=== PATIENT | female | born 1980 | race Caucasian/White ===

== ENCOUNTER 2018-11-30 12:30 | Outpatient (RCR) | payer BC, SELFPAY ==
--- NOTE | 2018-11-09 10:45 | HP.PTEVAL_ITS ---
Patient's Visit Information FAITH FLETCHER is a 37 year old F referred to Physical Therapy by Justin Ochoa MD with a diagnosis of dizzyness. Date of Evaluation: 11/09/18 Physical Therapist: Triston Michaels, FELICIANOT, OCS, CSCS - Visit Plan Frequency: 1x/Week Duration: 4-6 Weeks Plan: weekly x 2-6 for progression of adaptation and habituation ex and balance checks. - Subjective Findings: Has vertigo. Which started last Monday morning and was sick driving. Spinning started Monday out of nowhere. Did have some pressure in ears the night before. Spinny for a couple days better with ec and horizon focus. Hard to walk for a few days due to balance. Went to doctor Don and given dramamine for nausea. Two days later was still dizzy and now 90% better. Still has spinning with tilting head back. No falls. No nueropathy. Sleep is OK. 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 Has 3 boys 9,7,5. Basic ADLs are better today but was rough early in week. - Objective Walks slightly unsteady, cervical ROM is WNL but hesitant to look up. - B hallpike donna adn - roll test. Oculomotor: - skew eye deviation. normal convergence. pursuit and saccades are normal. VOR is slightly transiently symptomatic horizontally and more so vertically. - head thrust. Head turns give slight dizzyness x 5 but head nods very dizzy x 5 seconds adn starts to lose balance BW. - Balance Scores Functional Gait Assessment Score: 26 % Disability: 13.3400 CATSIB Score (Max score 120 seconds): 98 - Goals Goal 1:: Abolish vertigo feelings Goal Time Frame: 2-4 Weeks Goal 2:: 30/30 FGA Goal Time Frame: 2-4 Weeks Goal 3:: look up quickly with LOB Goal Time Frame: 2-4 Weeks Goal 4:: Pt feel 100% back to normal activitiy without hesitation Goal Time Frame: 2-4 Weeks - Rehabilitation Potential Physical Therapy Diagnosis: Unilateral vestibular hypofunction Rehabilitation Potential: Good - Anticipated Interventions Patient/Client Instruction: Educate patient on: Condition, Plan of Care For the Purpose of:: To increase tolerance to activity/condition/position, To improve balance Therapeutic Exercise to Include: Balance training Comment: adaptationa dn habituation ex For the Purpose of:: To increase tolerance to activity/condition/position, To improve safety Thank you for the opportunity to evaluate your patient. For Medicare and Medicare HMO plans, please review the plan of care and approve it. It will need to be FAXED BACK to us at [phone] for Medicare purposes. For Medicare only, by signing this I certify the plan of care. Please let me know if there are questions or concerns regarding this plan of care. Physician Signature: Date:
--- NOTE | 2018-11-30 12:43 | HP.PTDCSUM ---
HP - PT D/C Summary It has been my pleasure to treat FAITH FLETCHER under orders from Justin Ochoa MD, for the diagnosis of dizzyness for a total of 3 visit(s). Discharge Date: 11/30/18 Please see the following information for a summary of their discharge status. - Subjective Subjective: Much better. No general dizzyness. Still geets a little bit at end of busy day. 1/2 out of 10. Still getting better. Activities include running outdoors without a problem. No follow up with doctor. - Overall Improvement % Improvement: 96 - Objective Objective/Function: Good baoance, no dizzyness, VORx2 well with standing in busy environment only very slight adn transient symptoms. OVERALL DOING WELL AND WILL CONTINUE ON HER OWN. - Goals Goal 1:: Abolish vertigo feelings Goal Progress: Progressing Goal 2:: FGA Goal Progress: Goal Met Goal 3:: look up quickly with LOB Goal Progress: Goal Met Goal 4:: Pt feel 100% back to normal activitiy without hesitation Goal Progress: Progressing - Plan Plan: d/c - D/C Information Discharge Comments: Pt doing well adn will cotninue I. Will contact doctor if situation worsens again. If there are questions or concerns regarding this patient's physical therapy, please feel free to call me at [phone]. Thank you for the referral of this patient. Sincerely, Triston Michaels, DPT, OCS, CSCS
== END 2018-11-30 19:00 | disposition home or self-care (01) ==
LOC: PT 12:30
PROVIDERS: Family Provider Family Medicine; PCP Family Medicine; Referring Provider Family Medicine; Visit Provider Family Medicine
DX: R42 Dizziness and giddiness (principal)
CPT/HCPCS: 97162; 97530

== ENCOUNTER → 2022-02-23 | Outpatient (CLI) | payer BC, SELFPAY ==
[2022-02-23 10:10] LABS: Absolute Lymphocyte Count 1.23 X10^3/uL (0.83-4.51); Absolute Neutrophil Count 2.3 X10^3/uL (2.0-7.7); Basophil# 0.01 X10^3/uL; Basophil% 0.3 % (0-1); Eosinophil# 0.03 X10^3/uL; Eosinophils% 0.8 % (0-5); Hematocrit 37.6 % (37-47); Hemoglobin 11.9 g/dL (12.0-15.0); Lymphocyte # 1.23 X10^3/ul (0.83-4.51); Lymphocyte % 31.9 % (19-41); Mean Corp Hgb Conc 31.6 g/dL (32-36); Mean Corpuscular Hgb 30.3 pg (27.0-32.0); Mean Corpuscular Volume 95.7 fL (81-99); Mean Platelet Vol. 13.7 fl (6.2-12.0); Monocyte# 0.28 X10^3/uL; Monocyte% 7.3 % (0-10); NRBC Flagged by Analyzer 0 % (0-5); Neutrophil # 2.29 X10^3/uL (2.7-7.7); Neutrophil % 59.4 % (47-70); Platelet Count 128 K/mm3 (150-450); RBC Distribution Width CV 13.7 % (11.6-14.6); RBC Distribution Width SD 48.6 fl (35.1-43.9); Red Blood Count 3.93 M/mm3 (4.2-5.4); White Blood Count 3.9 K/mm3 (4.4-11.0)
[2022-02-23 10:52] LABS: Cholesterol 151 mg/dL (200); Creatinine, Serum 0.67 mg/dL (0.55-1.02); EST Glomerular Filtration Rate 103 mL/min (>60); Est Glom Filt Rate - Afr Amer 124 mL/min (>60); Ferritin 10 ng/mL (8-252); High Density Lipoprotein 55 mg/dL; Thyroid Stim Hormone (TSH) 2.06 uIU/mL (0.358-3.74); Triglycerides 51 mg/dL; Very Low Density Lipoprotein 10 mg/dL (5-40)
== END | disposition home or self-care (01) ==
LOC: MFPLAB 09:24
PROVIDERS: PCP Family Medicine; Referring Provider Family Medicine; Visit Provider Family Medicine
DX: Z00.00 Encounter for general adult medical examination without abnormal findings (principal); D64.9 Anemia, unspecified
CPT/HCPCS: 36415; 80061; 82565; 82728; 84443; 85025

== ENCOUNTER → 2022-06-22 | Outpatient (CLI) | payer BC, SELFPAY ==
[2022-06-22 17:50] LABS: Absolute Lymphocyte Count 1.22 X10^3/uL (0.83-4.51); Absolute Neutrophil Count 2.3 X10^3/uL (2.0-7.7); Basophil# 0.01 X10^3/uL; Basophil% 0.3 % (0-1); Eosinophil# 0.03 X10^3/uL; Eosinophils% 0.8 % (0-5); Hematocrit 36.6 % (37-47); Hemoglobin 11.7 g/dL (12.0-15.0); Lymphocyte # 1.22 X10^3/ul (0.83-4.51); Lymphocyte % 32.4 % (19-41); Mean Platelet Vol. 13.8 fl (6.2-12.0); Monocyte# 0.24 X10^3/uL; Monocyte% 6.4 % (0-10); NRBC Flagged by Analyzer 0 % (0-5); Neutrophil # 2.25 X10^3/uL (2.7-7.7); Neutrophil % 59.8 % (47-70); Platelet Count 145 K/mm3 (150-450); RBC Distribution Width CV 12.5 % (11.6-14.6); RBC Distribution Width SD 46.4 fl (35.1-43.9); Red Blood Count 3.66 M/mm3 (4.2-5.4); White Blood Count 3.8 K/mm3 (4.4-11.0)
[2022-06-22 18:59] LABS: Ferritin 17 ng/mL (8-252); Iron Binding Capacity,Total 320 ug/dL (250-450)
[2022-06-22 19:15] LABS: Vitamin B12 882 pg/mL (211-911)
[2022-06-24 09:21] LABS: CRP < 2.90 mg/L (0.0-3.0); Thyroid Stim Hormone (TSH) 1.57 uIU/mL (0.358-3.74)
[2022-06-25 13:01] LABS: ANTINUCLEAR ANTIBODIES DIRECT Negative (Negative)
[2022-06-28 08:51] LABS: Pathologist Review Reviewed
== END | disposition home or self-care (01) ==
LOC: MFPLAB 14:43
PROVIDERS: PCP Family Medicine; Visit Provider Nurse Practitioner Family
DX: D50.9 Iron deficiency anemia, unspecified (principal)
CPT/HCPCS: 36415; 82607; 82728; 83550; 84443; 85025; 86038; 86140; 86225; 86235

== ENCOUNTER → 2022-06-27 | Outpatient (CLI) | payer BC, SELFPAY ==
--- NOTE | 2022-06-27 16:41 | RAD_ITS ---
STUDY: X-RAY CHEST REASON FOR EXAM: Female, 41 years old. LEFT SHOULDER PAIN TECHNIQUE: PA and lateral COMPARISON: None. FINDINGS: The lungs are clear and expanded. Tiny nodular opacity in the left upper lobe likely calcified granuloma There is no demonstrated pleural abnormality. Normal size heart. Normal mediastinum and heide. Normal visualized pulmonary arteries. Normal visualized aortic arch and descending thoracic aorta. Normal visualized thoracic spine. Normal visualized ribs, clavicles, and shoulders. There is no demonstrated abnormality of the visualized soft tissue structures of the upper abdomen. RAD/Chest PA and Lateral IMPRESSION: No acute cardiopulmonary pathology Probable tiny calcified granuloma in left upper lobe. Recommend clinical correlation and follow-up chest radiograph or CT if clinically warranted. Electronically Signed: Florencio Gallegos MD at 20:25 EDT ,
[2022-06-27 17:34] LABS: Absolute Lymphocyte Count 1.21 X10^3/uL (0.83-4.51); Absolute Neutrophil Count 3.5 X10^3/uL (2.0-7.7); Basophil# 0.02 X10^3/uL; Basophil% 0.4 % (0-1); Eosinophil# 0.01 X10^3/uL; Eosinophils% 0.2 % (0-5); Hematocrit 37.2 % (37-47); Hemoglobin 11.8 g/dL (12.0-15.0); Immature Platelet Fraction 20.5 % (1.0-7.9); Lymphocyte # 1.21 X10^3/ul (0.83-4.51); Mean Corp Hgb Conc 31.7 g/dL (32-36); Mean Corpuscular Hgb 31.3 pg (27.0-32.0); Mean Corpuscular Volume 98.7 fL (81-99); Mean Platelet Vol. 13.2 fl (6.2-12.0); Monocyte# 0.29 X10^3/uL; Monocyte% 5.8 % (0-10); NRBC Flagged by Analyzer 0 % (0-5); Neutrophil % 69.4 % (47-70); Platelet Count 163 K/mm3 (150-450); RBC Distribution Width CV 12.4 % (11.6-14.6); RBC Distribution Width SD 45.1 fl (35.1-43.9); RET-HE 35.2 pg (30-35); Red Blood Count 3.77 M/mm3 (4.2-5.4); Reticulocyte Count 1.15 % (0.5-1.5)
[2022-06-27 17:41] LABS: Partial Thromboplast Time 28.2 Seconds (24.1-36.2)
[2022-06-30 13:08] LABS: PROEL- A/G Ratio 0.9 (0.7-1.7); PROEL- Alpha-1 Globulin 0.2 g/dL (0.0-0.4); PROEL- Alpha-2 Globulin 0.8 g/dL (0.4-1.0); PROEL- Gamma Globulin 2.5 g/dL (0.4-1.8); PROEL- Globulin, Total 4.5 g/dL (2.2-3.9); PROEL- TOTAL PROTEIN 8.5 g/dL (6.0-8.5); PROELU- Albumin, Urine 23.1 % (.); PROELU- Alpha-1-Globulin,Ur 5.6 % (.); PROELU- Alpha-2-Globulin,Ur 15.5 % (.); PROELU- Beta Globulin, Ur 44.8 % (.); PROELU- Gamma Globulin, Ur 11.1 % (.); PROELU- M-Spike, Ur 27.6 % (Not Observed); QNTFERON TB Mitogen Value > 10.00 IU/mL (.); QNTFERON TB Nil Value 0 IU/mL (.); QNTFERON TB1+ Ag Value 0.01 IU/mL (.); QNTFERON TB2+ Ag Value 0 IU/mL (.); Total Protein, Ur 4.3 mg/dL (Not Estab.)
[2022-06-30 15:14] LABS: QNTIFERON TB Positive Criteria Negative (Negative)
== END | disposition home or self-care (01) ==
PROVIDERS: PCP Family Medicine; Referring Provider Family Medicine; Visit Provider Family Medicine
DX: D61.818 Other pancytopenia (principal)
CPT/HCPCS: 36415; 71046; 84165; 84166; 85025; 85045; 85610; 85730; 86480

== ENCOUNTER → 2022-07-06 | Outpatient (CLI) | payer BC, SELFPAY ==
--- NOTE | 2022-07-06 13:16 | CT_ITS ---
STUDY: CT CHEST WITHOUT CONTRAST REASON FOR EXAM: Female, 41 years old. Scaring on x-ray, may be a possible nodule in the SONDRA. RADIATION DOSAGE (If Supplied By Facility): CTDIvol = ( 6.12 ) mGy, DLP = ( 224.70 ) mGycm TECHNIQUE: Transaxial imaging was performed without the administration of intravenous contrast material. Multiplanar coronal and sagittal images were reformatted. Individualized dose optimization techniques were used for this CT. COMPARISON: Comparison is made with prior chest radiograph dated June 27, 2022. FINDINGS: CHEST The lungs are normal. There is no demonstrated pleural abnormality. Normal heart and pericardium. Normal mediastinum. Normal hilar regions. Normal unenhanced pulmonary arteries. Normal aorta arch and descending thoracic aorta. Normal osseous structures. There is no demonstrated abnormality of the visualized upper abdomen. CT/Chest without Contrast IMPRESSION: Normal unenhanced CT chest T abdomen examination. Electronically Signed: Gonzalez Burns MD at 14:13 EDT ,
== END | disposition home or self-care (01) ==
LOC: CT 13:14
PROVIDERS: PCP Family Medicine; Referring Provider Family Medicine; Visit Provider Family Medicine
DX: R93.89 Abnormal findings on diagnostic imaging of other specified body structures (principal)
CPT/HCPCS: 71250

== ENCOUNTER → 2022-07-22 | Outpatient (CLI) | payer BC, SELFPAY ==
--- NOTE | 2022-07-22 07:51 | CT_ITS ---
STUDY: CT ABDOMEN AND PELVIS WITH CONTRAST - URINARY TRACT REASON FOR EXAM: Female, 41 years old. ABNORMAL SERUM PROTEIN/assess for LYMPHADENOPATHY RADIATION DOSAGE (If Supplied By Facility): CTDIvol = ( 10.00 ) mGy, DLP = ( 320.27 ) mGycm TECHNIQUE: IV 100mL Isovue-300 was administered. Transaxial images were obtained from the dome of the diaphragm to the symphysis pubis in the arterial phases Multiplanar coronal and sagittal images were reformatted. Individualized Dose Optimization Techniques Were Used For This CT. COMPARISON: Chest CT dated July 06, 2022 FINDINGS: The visualized lung bases are unremarkable. The visualized portions of the heart are within normal limits. Within the right hepatic lobe there are two well-circumscribed round low attenuation foci measuring up to 1.4 and 1.3 cm. There are two too small to characterize low-attenuation foci within the right hepatic lobe as well. Normal gallbladder and extrahepatic biliary system. Normal spleen. Normal pancreas. Normal bilateral adrenal glands. Normal visualized stomach. Normal small intestine. Normal colon. The appendix is visualized and appears normal. Normal abdominal aorta. No retroperitoneal adenopathy. Normal right kidney. Normal left kidney. Normal urinary bladder. There is a 8.8 x 5.5 mm round high attenuation focus within the endometrial cavity at the level of the uterine fundus. Normal abdominal wall. Normal osseous structures. CT/Abdomen/Pelvis W IV Cont ONLY IMPRESSION: Indeterminate low-attenuation foci within the liver may reflect hemangiomas and/or cysts, recommend right upper quadrant ultrasound for further evaluation. Indeterminate 8.8 x 5.5 mm focus within the endometrial cavity, may reflect a polyp or fibroid, recommend pelvic ultrasound for further characterization. Electronically Signed: Eliana Valerio MD at 9:43 EDT ,
--- NOTE | 2022-07-22 08:00 | RAD_ITS ---
STUDY: X-RAY BONE SURVEY COMPLETE REASON FOR EXAM: Female, 41 years old. Abnormal serum protein TECHNIQUE: PA and lateral views of the chest. One view of the pelvis was obtained. 2 views of the cervical spine were obtained. 2 views of the thoracic spine were obtained. 2 views of the lumbar spine were obtained. 1 views of each femur. One view of each humerus. : 2 views of the skull were obtained. One view of each forearm, one view of each tibia and fibula. COMPARISON: None. FINDINGS: CHEST: The lungs are clear and expanded. There is no demonstrated pleural abnormality. Normal size heart. Normal mediastinum and heide. Normal visualized pulmonary arteries. Normal visualized aortic arch and descending thoracic aorta. Normal visualized thoracic spine. Normal visualized ribs, clavicles, and shoulders. There is no demonstrated abnormality of the visualized soft tissue structures of the upper abdomen. PELVIS: There is a non-specific bowel gas pattern. Normal visualized soft tissue structures. Normal bilateral iliac wings, sacroiliac joints and visualized sacrum. Normal visualized bilateral superior and inferior pubic rami. Normal pubic symphysis. Normal ischial tuberosities. Normal visualized right femoral head. Normal right acetabulum. Normal right hip joint. Normal visualized left femoral head. Normal left acetabulum. Normal left hip joint. CERVICAL SPINE: Normal anterior atlantoaxial articulation. Normal odontoid process. Normal cervical lordosis. Normal vertebral bodies and endplates. Normal disc space heights. Normal visualized intervertebral neuroforamina. The soft tissue structures are unremarkable. THORACIC SPINE: Normal kyphosis of the thoracic spine. There is no substantial scoliosis. Normal thoracic vertebrae and endplates. Normal disc space heights. The soft tissue structures are unremarkable. LUMBAR SPINE: Normal lumbar lordosis. There is no substantial scoliosis. There is a normal alignment of the vertebrae. Normal vertebral bodies and endplates. Normal disc space heights. The soft tissue structures are unremarkable. RIGHT FEMUR: Normal visualized femur. Normal visualized soft tissue structure. LEFT FEMUR: Normal visualized femur. Normal visualized soft tissue structure. RIGHT HUMERUS :Normal visualized humerus. There is no demonstrated fracture or osseous destructive process. There is no demonstrated soft tissue abnormality. LEFT HUMERUS:Normal visualized humerus. There is no demonstrated fracture or osseous destructive process. There is no demonstrated soft tissue abnormality. SKULL: There is no demonstrated soft tissue swelling. Normal osseous calvarium. Normal visualized facial bones. Normal visualized paranasal sinuses. RAD/Bone Survey Comp(Axial&Append) IMPRESSION: Electronically Signed: Jhoan Cross MD at 9:22 EDT ,
== END | disposition home or self-care (01) ==
PROVIDERS: PCP Family Medicine; Referring Provider Internal Medicine Medical Oncology; Visit Provider Internal Medicine Medical Oncology
DX: R77.9 Abnormality of plasma protein, unspecified (principal)
CPT/HCPCS: 74177; 77075; Q9967

== ENCOUNTER 2022-08-01 07:45 | Outpatient (CLI) | payer BC, SELFPAY ==
[2022-08-01] VITALS (10 sets, daily range): BP systolic 91–117; BP diastolic 51–88; PULSE 66–85; RESP 11–18; TEMP 37.1; O2SAT 96–100; BMI 22.4
--- NOTE | 2022-08-01 | BMB_PTH ---
PATIENT: FAITH FLETCHER LOC: CT U#:[id number] AGE/SX: 41/F ROOM: RE08/01/[address]: Dr. Brendon Hodges MD : 1980 BED: DIS: 08/01/2022 SPEC #: [id number] RECD: 08/01/22 10:04 STATUS: SONALI GOSSBecky #: [id number] ZUHAIR: 08/01/22 00:[address]: Brendon Hodges DEPT: BONE MARROW RECD BY: Lori Powers ENTERED: 08/01/22 10:04 SP TYPE: BMB MARIE DR: Dr. Triston Bowen MD Tissues: A - Bone marrow, NOS B - Bone marrow, NOS C - Bone marrow, NOS Procedures: Bone Marrow Aspiration Bone Marrow Core Biopsy Iron Stain Bone Marrow HEADER OPERATION: Bone marrow aspiration and biopsy PRE-OP DIAGNOSIS: High IgG level, M-spike 2g TISSUE SUBMITTED: A - Core, B - Clot, C - Smears, and send outs (flow, cytogenetics and FISH) BONE MARROW DIAGNOSIS Bone marrow biopsy, clot and aspiration: Clonal plasma cells are detected, consistent with plasma cell neoplasm. See comment. AM:didier 08/04/2022 COMMENT Flow cytometry analysis of aspirate material reveals plasma cells (5.1%) consistent with plasma cell neoplasm. The immunophenotype reveals lambda positive, IgG positive plasma cell population. The bone marrow biopsy, clot and aspirates are markedly hemodilute and aspicular. The plasma cell count on the aspirate is approximately 5-6%. No immature plasma cells are identified. Clinical correlation is suggested. Cytogenetic studies are pending and will be reported as an addendum.. BONE MARROW STUDY Slides are reviewed. CBC DATE: 08/01/2022 WBC 3.67; RBC 3.85; HGB 12.2; HCT 38.3; MCV 99.5; RDW 44.8; PLTS 160,000 SEGS 63.3%; LYMPHS 29.2%; MONOS 6.5%; EOS 0.5%; BASOS 05% PERIPHERAL SMEAR: Submitted. RBC: Normochromic, normocytic WBC: Rare reactive lymphocytes present. PLTS: Normomorphic BONE MARROW ASPIRATE DIFFERENTIAL: Trilineage hematopoiesis. Markedly hemodilute. Mature plasma cell count is 6%. ASPIRATE FINDINGS: Site: Right hip Marked hemodilute. Trilineage hematopoiesis. Plasma cells (mature) = 5-6% CORE BIOPSY FINDINGS: Site: Right hip Cellularity %: Not applicable. M/E ratio: Not applicable. Megakaryocytes: Rare Bony trabeculae: Not present Granulomas: Not present Lymphoid aggregate(s): Not present Atypical infiltrate(s): Not present Comment: Only blood clots with scant maturing bone marrow elements. ASPIRATE CLOT FINDINGS: Site: Right hip Marrow Particles: Not applicable M/E ratio: Not applicable Megakaryocytes: Rare Granuloma(s): Not identified Lymphoid aggregate(s): Not identified Atypical infiltrate(s): Not identified Comment: Only blood clots with scant maturing bone marrow elements. SPECIAL STAINS (with matched controls): Iron: Aspicular specimen Reticulin: Aspicular specimen PAS: Highlights myeloid elements and megakaryocytes. BONE MARROW GROSS A - Received is a container labeled with the patient's name and designated right hip bone marrow. The specimen consists of a scant amount of soft tissue. The specimen is totally submitted for cell block preparation. B - Received labeled with the patient's name and designated right hip bone marrow is a specimen that consists of approximately 5.0 ml of reddish-rm fluid that on filtration yields multiple irregular fragments of red-rm soft tissue measuring in aggregate 3.0 x 2.0 x 0.2 cm. The specimen is totally submitted in one cassette. C - Also received are 13 unstained and 1 peripheral stained slides. The unstained slides are submitted for appropriate staining. Also received is one green top tube which is sent to our reference lab for flow, cytogenetics and FISH. / AM:didier 08/01/2022 TC:0 CPT: 32619, 48388, 02743 x2, 77269 x3 ADDENDUM ADDENDUM ADDENDUM ADDENDUM ADDENDUM ADDENDUM ADDENDUM ADDENDUM 08/08/2022 14:48 ADDENDUM 08/08/2022 14:48 ADDENDUM 08/08/2022 14:48 ADDENDUM 08/08/2022 14:48 ADDENDUM 08/08/2022 14:48 CYTOGENETICS REPORT FROM [facility] INTERPRETATION: A normal female chromosome complement was observed in twenty metaphases analyzed. Karyotype: 46,XX[20] Please see complete report in e-chart or EMR
--- NOTE | 2022-08-01 08:02 | CT_ITS ---
PROCEDURE: CT GUIDED bone marrow biopsy and bone marrow aspiration of the posterior right iliac bone. DATE: August 01, 2022. INDICATION: Female, 41 years old. Hypogammaglobulinemia. PHYSICIAN: Gonzalez Burns M.D. RADIATION DOSAGE (If Supplied By Facility): CTDIvol = ( 14.5 ) mGy, DLP = ( 213.66 ) mGycm. Individualized dose optimization techniques were utilized. PROCEDURE: The risks, benefits, and alternatives to the procedure were explained to the patient. The specific risk of hemorrhage requiring further treatment or intervention was detailed and accepted. Follow-up instructions were discussed with the patient as well. Written informed consent was obtained. The patient was brought into the CT suite and placed in the prone position.. . An appropriate entry site was identified. The overlying skin was prepped and draped in the usual sterile fashion. 1% lidocaine was administered subcutaneously for local anesthesia. Conscious sedation was performed. The patient received 2 mg of Versed and 50 mcg of fentanyl intravenously. Conscious sedation was started at 9:11 AM and terminated 9:28 AM. The patient was independently monitored by the department nurse. Under CT guidance, a bone marrow biopsy and bone marrow aspirate were performed utilizing an 11-gauge core biopsy needle system. The specimens were then placed in the appropriate fluid and transported to the laboratory for analysis. Hemostasis was obtained. The patient tolerated the procedure well without immediate complications. CT/Biopsy/Inj or Needle Placement IMPRESSION: Successful CT guided bone marrow biopsy and bone marrow aspiration, as described above. Conscious sedation protocol was followed. Electronically Signed: Gonzalez Burns MD at 9:55 EDT ,
[2022-08-01 08:09] LABS: Absolute Lymphocyte Count 1.07 X10^3/uL (0.83-4.51); Absolute Neutrophil Count 2.3 X10^3/uL (2.0-7.7); Basophil# 0.02 X10^3/uL; Basophil% 0.5 % (0-1); Eosinophil# 0.02 X10^3/uL; Eosinophils% 0.5 % (0-5); Hematocrit 38.3 % (37-47); Hemoglobin 12.2 g/dL (12.0-15.0); Lymphocyte # 1.07 X10^3/ul (0.83-4.51); Lymphocyte % 29.2 % (19-41); Mean Corp Hgb Conc 31.9 g/dL (32-36); Mean Corpuscular Hgb 31.7 pg (27.0-32.0); Mean Corpuscular Volume 99.5 fL (81-99); Mean Platelet Vol. 12.5 fl (6.2-12.0); Monocyte# 0.24 X10^3/uL; Monocyte% 6.5 % (0-10); NRBC Flagged by Analyzer 0 % (0-5); Neutrophil # 2.32 X10^3/uL (2.7-7.7); Neutrophil % 63.3 % (47-70); Platelet Count 160 K/mm3 (150-450); RBC Distribution Width CV 12.4 % (11.6-14.6); RBC Distribution Width SD 44.8 fl (35.1-43.9); Red Blood Count 3.85 M/mm3 (4.2-5.4); White Blood Count 3.7 K/mm3 (4.4-11.0)
[2022-08-01 08:16] LABS: Prothrombin Time (Protime)PT. 13.1 SECONDS (11.7-14.9)
[2022-08-01 08:17] LABS: Partial Thromboplast Time 28.4 Seconds (24.1-36.2)
[2022-08-01] MEDS: Midazolam 2 MG/2 ML Syringe IV (09:11)
[2022-08-01] MEDS: fentaNYL 100 MCG/2 ML Ampul IV (09:13)
[2022-08-01] MEDS: Lidocaine 2% (20 ml mdv) 20 ML Vial INFILT (09:20)
== END 2022-08-01 23:59 | disposition home or self-care (01) ==
PROVIDERS: PCP Family Medicine; Referring Provider Internal Medicine Medical Oncology; Visit Provider Internal Medicine Medical Oncology
DX: C90.00 Multiple myeloma not having achieved remission (principal); D64.9 Anemia, unspecified; R77.8 Other specified abnormalities of plasma proteins; K76.89 Other specified diseases of liver
CPT/HCPCS: 38222; 36415; 77012; 85025; 85610; 85730; 88305; 88311; 88313; 99156; J7050; A4216

== ENCOUNTER 2022-10-18 08:00 | Outpatient (RCR) | payer BC, SELFPAY ==
--- NOTE | 2022-07-04 12:46 | HP.PTEVAL ---
Patient's Visit Information FAITH FLETCHER is a 41 year old F referred to Physical Therapy by Dr. Triston Bowen MD with a diagnosis of L shoulder pain (subscap tendonitis). Date of Evaluation: 07/04/22 Physical Therapist: JEAN Segal - Visit Plan Frequency: 1x/Week Duration: 3 Months Plan: 1X/ week for 12 weeks for L shoulder PROM, AAROM, AROM, strength, scapular strength with HEP No modalities as seeing a finishing lab technician for possible blood CA per her subjective. HEP: supine wand flex, standing wand abd, standing wand IR and pendulums - Subjective She started having shoulder pain a few months before [place]. It has not gotten better. She has been anemic for years. She is taking iron. Her blood counts are really low. They took an x-ray of shoulder and they may have seen a nodule so they are going to do a CAT SCAN. She is really tight and does not have full ROM with the L arm. She has an appt with Makeup Artistry Instructor on morning. She is R handed. She does not remember injury to it. She only has pain when she rolls over on it when she sleeps or if she moves it too far. No N&T and no neck pain. She can play the piano. - Pain L shoulder pain Pain Intensity (Out of 10): 0 Pain Intensity Range: 2 Comment: when moves arm overhead - Objective R shoulder AROM WFL. L shoulder AROM: flex approx 120, abd approx 95, ER 40, IR T12. R shoulder MMT R WFL. L shoulder MMT L flex 4/5, L abd 4-/5, L ER 4-/5, L IR 4/5. PROM of the L shoulder to almost full abduction and approx 160 degrees flexion - Balance/Special Test Scores Quick DASH Score: 20.4525 - Goals Goal 1:: I HEP Goal Time Frame: 8-12 Weeks Goal 2:: Increase L shoulder AROM (at time of the eval: L shoulder AROM: flex approx 120, abd approx 95, ER 40, IR T12) Goal Time Frame: 8-12 Weeks Goal 3:: Increase L shoulder strength (at the time of the eval: L shoulder MMT L flex 4/5, L abd 4-/5, L ER 4-/5, L IR 4/5) Goal Time Frame: 8-12 Weeks Goal 4:: Be able to use her arm, raising her arm, with no pain Goal Time Frame: 8-12 Weeks - Rehabilitation Potential Rehabilitation Potential: Good - Anticipated Interventions Patient/Client Instruction: Educate patient on: Condition, Plan of Care For the Purpose of:: To decrease pain, To increase ROM, To improve nutrient delivery to tissue, To improve muscle performance and motor function, To improve ability to perform ADL's, To increase tolerance to activity/condition/position, To improve performance and independence with ADL's, To decrease level of supervision to perform tasks, To improve ability of physical actions for home/community/work/leisure, To improve gait and locomotor functions, To improve health of tissue, To decrease soft tissue restriction, To increase flexibility/ROM Therapeutic Exercise to Include: Strength training, Endurance training, Postural training, Flexibilty training, Passive ROM, Active ROM, Scapular Strength/Stabilization For the Purpose of:: To decrease pain, To increase ROM, To improve nutrient delivery to tissue, To improve muscle performance and motor function, To improve ability to perform ADL's, To improve performance and independence with ADL's, To decrease level of supervision to perform tasks, To improve ability of physical actions for home/community/work/leisure, To improve gait and locomotor functions, To improve health of tissue, To decrease soft tissue restriction, To increase flexibility/ROM Manual Therapy Techniques to Include: Mobilization, Passive ROM, Soft tissue mobilization For the Purpose of:: To decrease pain, To increase ROM, To improve nutrient delivery to tissue, To improve muscle performance and motor function, To improve ability to perform ADL's Thank you for the opportunity to evaluate your patient. For Medicare and Medicare HMO plans, please review the plan of care and approve it. It will need to be FAXED BACK to us at [phone] for Medicare purposes. For Medicare only, by signing this I certify the plan of care. Please let me know if there are questions or concerns regarding this plan of care. Physician Signature: Date:
--- NOTE | 2022-10-18 08:37 | HP.PTDCSUM ---
Discharge Summary D/C summary: It has been my pleasure to treat FAITH FLETCHER referred by Dr. Triston Bowen MD, with the diagnosis of L shoulder pain (subscap tendonitis) for a total of 10 visit(s). Discharge Date: 10/18/22 Please see the following information for a summary of their discharge status. Subjective Subjective: Pt feels so much better. Still a little pain when reaching out to the side. She feels like she can continue at home with HEP Pain L shoulder pain: Pain Intensity (Out of 10): 1 Overall Improvement % Improvement: 95 Objective Objective/Function: L shoulder AROM: flex 155, abd 175, ER 66, IR T6 L shoulder MMT L flex 4/5, L abd 4/5, L ER 4/5, L IR 4/5 Pt really felt the lat stretch and the ER doorway stretch Goals Goal 1:: I HEP Goal Progress: Goal Met Goal 2:: Increase L shoulder AROM (at time of the eval: L shoulder AROM: flex approx 120, abd approx 95, ER 40, IR T12) Goal Progress: Goal Met Goal 3:: Increase L shoulder strength (at the time of the eval: L shoulder MMT L flex 4/5, L abd 4-/5, L ER 4-/5, L IR 4/5) Goal Progress: Goal Met Goal 4:: Be able to use her arm, raising her arm, with no pain Goal Progress: Goal Met Plan Plan: DC PT to HEP D/C Information Discharge Comments: DC PT to HEP d/c sentence: If there are questions or concerns regarding this patient's physical therapy, please feel free to call me at [phone]. Thank you for the referral of this patient. Sincerely, Griselda Orosco, MPT Balance/Gait/Functional tests Balance/Special Test Scores Quick DASH Score: 4.5450
== END 2022-10-18 09:49 | disposition home or self-care (01) ==
LOC: PT 08:00
PROVIDERS: PCP Family Medicine; Referring Provider Family Medicine; Visit Provider Family Medicine
DX: M75.82 Other shoulder lesions, left shoulder (principal)
CPT/HCPCS: 97110; 97161

== ENCOUNTER → 2022-11-07 | Outpatient (CLI) | payer BC, SELFPAY ==
--- NOTE | 2022-11-07 07:31 | MRI_ITS ---
EXAM: MR ABDOMEN WITHOUT AND WITH INTRAVENOUS CONTRAST CLINICAL INDICATION: LIVER CYSTS, recent diagnosis of MGUS TECHNIQUE: Multiplanar and multisequence MR images of the abdomen without and with intravenous contrast. CONTRAST: IV 12ml clariscan COMPARISON: CT 07.22.22 FINDINGS: LOWER THORAX: Unremarkable. No pleural effusion. LIVER: 15 mm and 2 mm hypodense lesion in the left lobe of the liver. These have centripetal fill. There is peripheral serpiginous enhancement. 6 mm and 4 mm hypodense lesion in the right lobe of the liver. These become slightly hyperdense postcontrast. These then become isointense on delayed images. GALLBLADDER AND BILE DUCTS: Unremarkable. No gallstones. No gallbladder distention or wall edema. No intra- or extrahepatic biliary ductal dilation. PANCREAS: Unremarkable. No focal cystic or solid mass. SPLEEN: Unremarkable. Normal size without focal cystic or solid mass. ADRENALS: Unremarkable. No nodules. KIDNEYS AND URETERS: Unremarkable. Normal renal size and position. No hydronephrosis. INTRAPERITONEAL SPACE: Unremarkable. No ascites or other fluid collection. No free air. BONES/JOINTS: Lesions identified on the CT scan correlated with hemangiomas by MRI criteria. No follow up required. VASCULATURE: Unremarkable. Abdominal aorta is non-dilated. LYMPH NODES: No enlarged lymph nodes. MRI/MRI Abd WITH and W/O Contrast IMPRESSION: Lesions identified on the CT scan correlated with hemangiomas by MRI criteria. No follow up required. Electronically Signed: Prosper Hutchins MD at 15:44 EDT ,
[2022-11-07 07:47] LABS: Absolute Lymphocyte Count 1.19 X10^3/uL (0.83-4.51); Absolute Neutrophil Count 2.1 X10^3/uL (2.0-7.7); Basophil# 0.01 X10^3/uL; Basophil% 0.3 % (0-1); Eosinophil# 0.04 X10^3/uL; Eosinophils% 1.1 % (0-5); Hematocrit 39.1 % (37-47); Hemoglobin 12.4 g/dL (12.0-15.0); Lymphocyte # 1.19 X10^3/ul (0.83-4.51); Lymphocyte % 32.8 % (19-41); Mean Corp Hgb Conc 31.7 g/dL (32-36); Mean Corpuscular Hgb 31.5 pg (27.0-32.0); Mean Corpuscular Volume 99.2 fL (81-99); Mean Platelet Vol. 12.7 fl (6.2-12.0); Monocyte# 0.26 X10^3/uL; Monocyte% 7.2 % (0-10); NRBC Flagged by Analyzer 0 % (0-5); Neutrophil # 2.12 X10^3/uL (2.7-7.7); Neutrophil % 58.3 % (47-70); POSITIVE MORPHOLOGY YES; Platelet Count 154 K/mm3 (150-450); RBC Distribution Width CV 12.1 % (11.6-14.6); RBC Distribution Width SD 44.1 fl (35.1-43.9); Red Blood Count 3.94 M/mm3 (4.2-5.4); White Blood Count 3.6 K/mm3 (4.4-11.0)
[2022-11-07 08:00] LABS: ALB/GLOB Ratio 0.8 RATIO (0.9-2.4); AST(SGOT) 26 U/L (15-37); Alanine Aminotransfer ALT/SGPT 20 U/L (13-56); Albumin, Serum 4.1 g/dL (3.2-5.0); Alkaline Phosphatase 63 U/L (45-117); Anion Gap 3 (5-15); BUN 8 mg/dL (7-18); BUN/Creat Ratio 10.7 RATIO (10-20); Calcium,Total 9.3 mg/dL (8.5-10.1); Chloride 105 mmol/L (98-107); Creatinine, Serum 0.75 mg/dL (0.55-1.02); EST Glomerular Filtration Rate 90 mL/min (>60); Est Glom Filt Rate - Afr Amer 109 mL/min (>60); Globulin 5.1 g/dL (2.2-4.2); Glucose 92 mg/dL (74-106); LDH 119 U/L (84-246); Potassium 3.8 mmol/L (3.5-5.1); Protein, Total 9.2 g/dL (6.4-8.2); Sodium Level 135 mmol/L (136-145); Uric Acid 3.6 mg/dL (2.6-6.0)
[2022-11-07 08:22] LABS: Differential Indicated SCAN CRITERIA MET
[2022-11-07 08:24] LABS: Differential Comment SCANNED
[2022-11-09 07:08] LABS: Beta-2-Microglobulin, S 1.5 mg/L (0.6-2.4)
[2022-11-09 13:08] LABS: Alpha-1-Globulins 0.2 g/dL (0.0-0.4); Alpha-2-Globulins 0.8 g/dL (0.4-1.0); Free Kappa Light Chains 34.4 mg/L (3.3-19.4); Free Lambda Light Chains 261.8 mg/L (5.7-26.3); Gamma Globulin 2.5 g/dL (0.4-1.8); Immunoglobulin A 173 mg/dL (87-352); Immunoglobulin G 2860 mg/dL (586-1602); Immunoglobulin M 107 mg/dL (26-217); PROEL- TOTAL PROTEIN 8.4 g/dL (6.0-8.5)
== END | disposition home or self-care (01) ==
LOC: MRI 07:30
PROVIDERS: PCP Family Medicine; Referring Provider Internal Medicine Medical Oncology; Visit Provider Internal Medicine Medical Oncology
DX: K76.89 Other specified diseases of liver (principal); D89.2 Hypergammaglobulinemia, unspecified; R77.8 Other specified abnormalities of plasma proteins
CPT/HCPCS: 36415; 74183; 80053; 82232; 82784; 83615; 83883; 84165; 84550; 85025; 86334; A9581; A4216

== ENCOUNTER → 2022-11-10 | Outpatient (CLI) | payer BC, SELFPAY ==
--- NOTE | 2022-11-10 06:53 | MRI_ITS ---
STUDY: MRI LUMBAR SPINE WITH AND WITHOUT CONTRAST REASON FOR EXAM: Female, 41 years old. low back pain; MGUS TECHNIQUE: Standardized fat and water weighted pulse sequences were obtained in the sagittal and axial planes. IV 12 cc clariscan was administered for the contrast portion of the examination. COMPARISON: None FINDINGS: T12-L1: Normal endplates. Normal disc height, hydration and morphology. Normal bilateral facet joints. Normal central canal and bilateral lateral recesses. Normal bilateral intervertebral neural foramina. Normal lumbar lordosis. There is no substantial scoliosis. Normal conus medullaris that terminates at the L1-2: Normal endplates. Normal disc height, hydration and morphology. Normal bilateral facet joints. Normal central canal and bilateral lateral recesses. Normal bilateral intervertebral neural foramina. L2-3: Normal endplates. Normal disc height, hydration and morphology. Normal bilateral facet joints. Normal central canal and bilateral lateral recesses. Normal bilateral intervertebral neural foramina. L3-4: Normal endplates. Normal disc height, hydration and morphology. Normal bilateral facet joints. Normal central canal and bilateral lateral recesses. Normal bilateral intervertebral neural foramina. L4-5: Normal endplates. Normal disc height, hydration and morphology. Normal bilateral facet joints. Normal central canal and bilateral lateral recesses. Normal bilateral intervertebral neural foramina. L5-S1: Normal endplates. Normal disc height, hydration and morphology. Normal bilateral facet joints. Normal central canal and bilateral lateral recesses. Normal bilateral intervertebral neural foramina. Normal visualized sacral ala. Normal visualized paraspinous soft tissue structures. MRI/Spine Lumbar W/WO Contrast IMPRESSION: Normal enhanced and unenhanced MR examination of the lumbar spine. Electronically Signed: Florencio Gallegos MD at 17:45 EDT ,
== END | disposition home or self-care (01) ==
LOC: MRI 06:46
PROVIDERS: PCP Family Medicine; Referring Provider Nurse Practitioner Family; Visit Provider Nurse Practitioner Family
DX: D47.2 Monoclonal gammopathy (principal); M54.50 Low back pain, unspecified
CPT/HCPCS: 72158; A9575

== ENCOUNTER → 2022-11-21 | Outpatient (CLI) | payer BC, SELFPAY ==
--- NOTE | 2022-11-21 08:16 | MRI_ITS ---
STUDY: MR PELVIS WITH T WITHOUT CONTRAST REASON FOR EXAM: Female, 42 years old. low back/sacral pain; MGUS TECHNIQUE: Standardized fat and water weighted pulse sequences were obtained in all 3 orthogonal planes, pre-and post contrast administration. IV 12ml clariscan was administered for the contrast portion of the examination. COMPARISON: None. FINDINGS: Normal urinary bladder. Visualized hollow viscus structures are unremarkable. Uterus measures 5.2 x 7.1 x 9.4 cm. There are small cysts along the lower uterine segment likely related to prior section, doubtful significance. Small amount of endometrial canal fluid is within normal limits. No uterine or endometrial mass. Bilateral adnexa are normal. There is no pelvic fluid. There is no pelvic mass lesion or lymphadenopathy. Normal visualized pelvic arteries. The sacrum is normal in appearance without evidence of bone marrow edema. Sacral nerves are normal without evidence of mass or compression. Normal abdominal wall. MRI/Pelvis W/WO Contrast IMPRESSION: Unremarkable unenhanced and enhanced MRI of the pelvis. Electronically Signed: Guzman Azul (Brooks), at 9:45 EDT Reading Location ID and State: [facility] / [place] , Service support ,
== END | disposition home or self-care (01) ==
LOC: MRI 08:08
PROVIDERS: PCP Family Medicine; Referring Provider Nurse Practitioner Family; Visit Provider Nurse Practitioner Family
DX: M54.50 Low back pain, unspecified (principal); M53.3 Sacrococcygeal disorders, not elsewhere classified; D47.2 Monoclonal gammopathy
CPT/HCPCS: 72197; A9575

== ENCOUNTER → 2022-12-08 | Outpatient (CLI) | payer BC, SELFPAY ==
--- NOTE | 2022-12-08 08:02 | US_ITS ---
STUDY: ABDOMINAL ULTRASOUND - RIGHT UPPER QUADRANT; ELASTOGRAPHY REASON FOR VISIT: Female, 42 years old. Monoclonal gammopathy. TECHNIQUE: Ultrasound evaluation of the right upper quadrant was performed with real-time and static guzman-scale imaging. Point quantification shear wave elastography was performed ([employer]). TECHNICAL QUALITY: Adequate. COMPARISON: Comparison is made with prior MRI of the abdomen dated November 07, 2022. FINDINGS: Liver: The liver measures 14.8 cm. There is normal echogenicity of the liver. The bile ducts are within normal limits. There is hepatic color flow. The direction of portal flow is hepatopetal. There is a 1.5 cm x 1.4 cm x 1.3 cm echogenic nodule in the left lobe of the liver suggestive of a hemangioma. A similar appearing nodules also seen measuring 1 cm x 1.5 cm x 1 cm. 2 subcentimeter echogenic and the largest in the right lobe of the liver suggestive of hemangiomas. Median liver stiffness measured 4 kPa. Gallbladder: Normal distended gallbladder. The gallbladder wall measures 2.0 mm. There is a negative sonographic Aragon''s sign. There is no pericholecystic fluid. There are no gallstones. Common Bile Duct (C.B.D.): The common bile duct measures 2.3 mm. Pancreas: There is normal echogenicity of the visualized pancreas. There is no demonstrated pancreatic mass or cyst. Right Kidney: Normal size of the right kidney. The right kidney measures 9.7 cm x 6.2 cm x 3.2 cm. Normal renal cortex. The right cortex measures 1.3 cm. There is no demonstrated renal mass or cyst. There is no right hydronephrosis. US/ABD Limited w/ Elastography IMPRESSION: 1. Liver stiffness measures 4 kPa compatible with FO (Normal) Metavir score. 2. Hemangiomas in both left and right lobe of the liver. Electronically Signed: Gonzalez Burns MD at 13:47 EDT ,
== END | disposition home or self-care (01) ==
LOC: OPUS 08:01
PROVIDERS: PCP Family Medicine; Referring Provider Internal Medicine Medical Oncology; Visit Provider Internal Medicine Medical Oncology
DX: D47.2 Monoclonal gammopathy (principal); R77.8 Other specified abnormalities of plasma proteins
CPT/HCPCS: 76705; 76981

== ENCOUNTER → 2023-02-27 | Outpatient (CLI) | payer BC, SELFPAY ==
--- NOTE | 2023-02-27 14:40 | RAD_ITS ---
STUDY: X-RAY - PELVIS AND LEFT HIP REASON FOR EXAM: Female, 42 years old. Left hip pain. TECHNIQUE: 3 views of the pelvis and hip. COMPARISON: None. FINDINGS: There is a non-specific bowel gas pattern. Normal visualized soft tissue structures. Normal bilateral iliac wings, sacroiliac joints and visualized sacrum. Normal bilateral superior and inferior pubic rami. Normal pubic symphysis. Normal bilateral ischial tuberosities. Normal visualized femoral head. Normal acetabulum. Normal hip joint. RAD/HIP, UNI W/ Pelvis 2-3 Views IMPRESSION: Normal x-ray examination of the pelvis and hip. Electronically Signed: Anatoly Darby MD at 15:29 EST ,
== END | disposition home or self-care (01) ==
LOC: MTRAD 14:40
PROVIDERS: PCP Family Medicine; Referring Provider Internal Medicine Medical Oncology; Visit Provider Internal Medicine Medical Oncology
DX: M25.552 Pain in left hip (principal); D47.2 Monoclonal gammopathy
CPT/HCPCS: 73502

== ENCOUNTER → 2023-03-07 | Outpatient (CLI) | payer BC, SELFPAY ==
--- NOTE | 2023-03-07 10:59 | MRI_ITS ---
EXAM: MR LEFT LOWER EXTREMITY WITHOUT AND WITH INTRAVENOUS CONTRAST, HIP CLINICAL INDICATION: LEFT HIP PAIN TECHNIQUE: Multiplanar and multisequence MR images of the left hip without and with intravenous contrast. CONTRAST: IV 10 CC CLARISCAN COMPARISON: February 27, 2023 FINDINGS: TENDONS: FLEXORS: Unremarkable. Intact. EXTENSORS/HAMSTRING: Unremarkable. Intact. ABDUCTORS: Unremarkable. Intact. ADDUCTORS: Unremarkable. Intact. ROTATORS: Unremarkable. Intact. MUSCLES: Unremarkable. Normal bulk and signal. FLUID: Unremarkable. No joint effusion. No trochanteric bursitis. LABRUM: Unremarkable. No evidence of a tear on this non-arthrogram exam. CARTILAGE: Unremarkable. Articular cartilage intact. 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 No avascular necrosis of the femoral head. No sacral insufficiency fracture. No suspicious bone marrow signal alteration. OTHER SOFT TISSUES: Unremarkable. MRI/Lower Ext Joint Only W/WO Cont IMPRESSION: 1. No significant internal derangement of the left hip. 2. Incidental finding of a 1.5 cm contrast lipoma at the left femoral neck. Electronically Signed: Easton Gaston MD at 21:50 EST ,
[2023-03-07 11:10] LABS: Absolute Lymphocyte Count 1.05 X10^3/uL (0.83-4.51); Absolute Neutrophil Count 3.4 X10^3/uL (2.0-7.7); Basophil# 0.01 X10^3/uL; Basophil% 0.2 % (0-1); Eosinophil# 0.01 X10^3/uL; Eosinophils% 0.2 % (0-5); Hematocrit 38.3 % (37-47); Hemoglobin 12.4 g/dL (12.0-15.0); Lymphocyte # 1.05 X10^3/ul (0.83-4.51); Lymphocyte % 21.8 % (19-41); Mean Corp Hgb Conc 32.4 g/dL (32-36); Mean Corpuscular Hgb 31.7 pg (27.0-32.0); Mean Platelet Vol. 12.3 fl (6.2-12.0); Monocyte# 0.36 X10^3/uL; Monocyte% 7.5 % (0-10); NRBC Flagged by Analyzer 0 % (0-5); Neutrophil # 3.38 X10^3/uL (2.7-7.7); Neutrophil % 70.1 % (47-70); POSITIVE MORPHOLOGY YES; Platelet Count 149 K/mm3 (150-450); RBC Distribution Width CV 12.8 % (11.6-14.6); RBC Distribution Width SD 46.2 fl (35.1-43.9); Red Blood Count 3.91 M/mm3 (4.2-5.4); White Blood Count 4.8 K/mm3 (4.4-11.0)
[2023-03-07 11:11] LABS: Differential Indicated SCAN CRITERIA MET
[2023-03-07 11:29] LABS: Differential Comment SCANNED
[2023-03-07 11:44] LABS: ALB/GLOB Ratio 0.8 RATIO (0.9-2.4); AST(SGOT) 21 U/L (15-37); Alanine Aminotransfer ALT/SGPT 20 U/L (13-56); Alkaline Phosphatase 58 U/L (45-117); Anion Gap 6 (5-15); BUN 9 mg/dL (7-18); Calcium,Total 8.9 mg/dL (8.5-10.1); Chloride 105 mmol/L (98-107); Creatinine, Serum 0.69 mg/dL (0.55-1.02); EST Glomerular Filtration Rate 98 mL/min (>60); Est Glom Filt Rate - Afr Amer 119 mL/min (>60); Globulin 5.2 g/dL (2.2-4.2); Glucose 88 mg/dL (74-106); LDH 151 U/L (84-246); Potassium 3.8 mmol/L (3.5-5.1); Protein, Total 9.2 g/dL (6.4-8.2); Sodium Level 136 mmol/L (136-145)
[2023-03-09 06:09] LABS: Albumin 3.9 g/dL (2.9-4.4); Alpha-1-Globulins 0.2 g/dL (0.0-0.4); Alpha-2-Globulins 0.8 g/dL (0.4-1.0); Free Kappa Light Chains 29.9 mg/L (3.3-19.4); Free Lambda Light Chains 265.8 mg/L (5.7-26.3); Gamma Globulin 2.5 g/dL (0.4-1.8); Immunoglobulin A 163 mg/dL (87-352); Immunoglobulin G 2567 mg/dL (586-1602); Immunoglobulin M 111 mg/dL (26-217); PROEL- TOTAL PROTEIN 8.5 g/dL (6.0-8.5)
== END | disposition home or self-care (01) ==
LOC: MRI 10:48
PROVIDERS: PCP Family Medicine; Referring Provider Internal Medicine Medical Oncology; Visit Provider Internal Medicine Medical Oncology
DX: D47.2 Monoclonal gammopathy (principal)
CPT/HCPCS: 36415; 73723; 80053; 82784; 83615; 83883; 84165; 85025; 86334; A9575

== ENCOUNTER 2023-03-10 07:25 | Outpatient (RCR) | payer BC, SELFPAY ==
--- NOTE | 2023-03-10 08:17 | HP.PTEVAL_ITS ---
Patient's Visit Information Visit Information Visit Information: FAITH FLETCHER is a 42 year old F referred to Physical Therapy by Dr. Triston Bowen MD with a diagnosis of L hip pain. Date of Evaluation: 03/10/23 Physical Therapist: Triston Michaels, DPT, OCS, CSCS Visit Plan Frequency: 1-2x /Week Duration: 4-6 Weeks Plan: f/u again 2 weeks to ensure stretches going well and add hip strength with pics for HEP (stabs and flexion) increase frequency if pain returns and patient to call. Subjective Subjective: Off and on for a couple years her L hip flares up. Hurts in the groin. Intermittent. Causes her to limp when it hurts. 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 Sees Cancer doctor who ordered MRI to find tumor adn will see next week. 3 weeks ago it hurt for a week, not bothering her lately. When it hurts it is worse walking and hard to walk. Getting up out of chair can hurt. Walks a few miles each morning. Gets stiff later in day, Not bad for last 2 weeks. No numbness or tingling excep 2nd toe shooting pain now and then. Needed a cane when flared up. Sleep is not a problem. 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 Exercises: lifts at home2x/week, lungeds and helena. Pain L groin: Pain Intensity (Out of 10): 0 Pain Intensity Range: 0 and 5 Objective Objective: Walks without pain or antalgia into PT I. trasnfers normal and I without pain. Steps reciprocal without rail no pain. tender to palpation L anterior hip and hip flexors. Tightness present moderately hin hip flexors , HS and quad L >R. 90/90 test is - 20 strength in hip is 3+ L flexion due to pain, 3+ abd and er and extension B weakness without pain knee strength and ankle 4+/5 reflexes 2/3 patella and achilles Sensation WNL to gross light touch LE - ALEM, - FADDIR, - slump, - SLR. LB AROM ext limited adn tight centrally, others WFL. Balance/Special Test Scores Lower Extremity Functional Score: 73 Goals Goal 1:: Patient I in appropriate HEP to limit future problems/flare ups Goal Time Frame: 2-4 Weeks Goal 2:: No pain in hip for 3 weeks Goal Time Frame: 2-4 Weeks Rehabilitation Potential Physical Therapy Diagnosis: Groin pain L unknown etiology tightness/weakness vs tumor. Rehabilitation Potential: Good Anticipated Interventions Patient/Client Instruction: Educate patient on: Condition and Plan of Care For the Purpose of:: To decrease pain, To improve nutrient delivery to tissue, To increase oxygenation perfusion, To increase tolerance to activity/condition/position, To improve ability of physical actions for home/community/work/leisure and To improve gait and locomotor functions Therapeutic Exercise to Include: Strength training and Flexibilty training For the Purpose of:: To decrease pain, To increase ROM and To improve muscle performance and motor function Text: Thank you for the opportunity to evaluate your patient. For Medicare and Medicare HMO plans, please review the plan of care and approve it. It will need to be FAXED BACK to us at [phone] for Medicare purposes. For Medicare only, by signing this I certify the plan of care. Please let me know if there are questions or concerns regarding this plan of care. Physician Signature: Date:
--- NOTE | 2023-04-24 07:44 | HP.PT.NRP ---
Patient Information Patient Information: FAITH FLETCHER was seen in my office for initial evaluation on 03/10/23. The following Plan of Care was established for this patient: POC Established Initial Frequency: 1-2x /Week Initial Duration: 4-6 Weeks Anticipated Interventions Patient/Client Instruction: Educate patient on: Condition and Plan of Care For the Purpose of:: To decrease pain, To improve nutrient delivery to tissue, To increase oxygenation perfusion, To increase tolerance to activity/condition/position, To improve ability of physical actions for home/community/work/leisure and To improve gait and locomotor functions Therapeutic Exercise to Include: Strength training and Flexibilty training For the Purpose of:: To decrease pain, To increase ROM and To improve muscle performance and motor function Last Seen Last Seen: This patient was last seen in our office 03/10/23. Pertinent comments regarding their Physical therapy will appear below: Pt seen one visit and POC established and initial HEP given. She was to f/u two weeks later but did not schedule or attend. at this point, it has been over 4 weeks and I will discontinue from my care. At this point I will be discontinuing this patient from physical therapy. I would be happy to see this patient again in the future if found appropriate by the physician. Thank you! Triston Michaels, DPT, OCS, CSCS Balance/Gait/Functional tests Balance/Special Test Scores Lower Extremity Functional Score: 73
== END 2023-03-10 19:00 | disposition home or self-care (01) ==
LOC: PT 07:25
PROVIDERS: PCP Family Medicine; Referring Provider Family Medicine; Visit Provider Family Medicine
DX: M23.8X2 Other internal derangements of left knee (principal); M25.552 Pain in left hip
CPT/HCPCS: 97110; 97161

== ENCOUNTER → 2023-09-22 | Outpatient (CLI) | payer BC, SELFPAY | END | disposition home or self-care (01) | LOC: LABSPEC 13:07 | PROVIDERS: PCP Family Medicine; Referring Provider Internal Medicine Hematology & Oncology; Visit Provider Internal Medicine Hematology & Oncology | DX: D47.2 Monoclonal gammopathy (principal) | CPT/HCPCS: 86850; 86900; 86901 ==